=== PATIENT | male | born 1980 | race Caucasian/White ===

== ENCOUNTER → 2020-05-03 | Day surgery (SDC) | payer BC ==
[~2020-05-03] MED LIST: ETOMIDATE 2 MG/ML 10 ML INJ IV ONE; GLYCOPYRROLATE INJ 0.2 MG/ML VIAL ONE; HYOSCYAMINE 0.125 MG TAB ONE; LIDOCAINE HCL 2% LOCAL INJ 5 ML SDV VIAL INJ ONE; MONTELUKAST SOD10 MG PO; PROPOFOL IV EMULSION 10 MG/ML 20 ML VIAL ONE
[2020-05-03 14:43] VITALS: BP 139/96
--- NOTE | 2020-05-03 18:20 | Operative Report ---
DATE OF PROCEDURE: 05/03/2020 SURGEON: Eder Singh MD PROCEDURE: Colonoscopy with polypectomy. INDICATIONS FOR COLONOSCOPY: Rectal bleeding. MEDICATIONS: The patient was done under MAC, please see anesthesiologist's note. PROCEDURE IN DETAIL: With the patient in the left lateral decubitus position, a flexible fiberoptic Olympus colonoscope was inserted into the rectum with ease and advanced all the way to the cecum. The mucosa overlying the cecum appeared to be within normal limits. Approximately 1.8 sessile polypoid lesion was noted in the proximal ascending colon that was removed per piecemeal polypectomy and site hemoclipped x4. The rest of the ascending and transverse appeared to be within normal limits. Approximately 5 mm sessile polyp was removed per snare electrocautery from the descending colon. The sigmoid appeared to be within normal limits. Another approximately 5 mm sessile polyp was removed from the proximal rectum per hot snare polypectomy. The scope was then retroflexed into the distal rectum and small internal hemorrhoids were noted, none of which was actively bleeding. The scope was then straightened out, it was subsequently withdrawn, and the patient tolerated the procedure well. IMPRESSION: 1. Ascending colon polyp, approximately 1.8 cm in size, sessile, removed per piecemeal polypectomy, site hemoclipped x4. 2. Descending colon polyp, hot snared. 3. Rectal polyp, hot snared. 4. Internal hemorrhoids, none actively bleeding. PLAN: Follow up histology. The patient will need a followup colonoscopy in 4 to 6 months to re-evaluate polypectomy site, proximal ascending colon and remove any residual polypoid tissue. Eder Singh MD [facility] [place] /[id number] cc: Kirk Singh MD
== END | disposition home or self-care (01) ==
LOC: OR 09:11
PROVIDERS: ATTEND Internal Medicine Gastroenterology
DX: D12.7 Benign neoplasm of rectosigmoid junction (principal); D12.2 Benign neoplasm of ascending colon; Z88.2 Allergy status to sulfonamides; Z88.8 Allergy status to other drugs, medicaments and biological substances; K21.9 Gastro-esophageal reflux disease without esophagitis; K64.8 Other hemorrhoids; Z01.812 Encounter for preprocedural laboratory examination; Z11.59 Encounter for screening for other viral diseases
CPT/HCPCS: 45380; 45385; J2001; J2704; U0002; 45378

== ENCOUNTER → 2021-02-14 | Day surgery (SDC) | payer BC ==
[~2021-02-14] MED LIST changes: -ETOMIDATE 2 MG/ML 10 ML INJ IV ONE; +FENTANYL CITRATE/PF 100MCG/2 ML INJ ONE; +GLUCAGON FOR INJ 1 MG VIAL ONE; -GLYCOPYRROLATE INJ 0.2 MG/ML VIAL ONE; -HYOSCYAMINE 0.125 MG TAB ONE; +HYOSCYAMINE SULFATE 0.5 MG/ML INJ ONE; -LIDOCAINE HCL 2% LOCAL INJ 5 ML SDV VIAL INJ ONE; +MIDAZOLAM HCL 2 MG/2 ML VIAL ONE
[2021-02-14 09:40] VITALS: BP 137/84
== END | disposition home or self-care (01) ==
LOC: OR 05:39
PROVIDERS: ATTEND Internal Medicine Gastroenterology
DX: D12.2 Benign neoplasm of ascending colon (principal); K64.8 Other hemorrhoids; Z01.812 Encounter for preprocedural laboratory examination; Z20.822 Contact with and (suspected) exposure to COVID-19
CPT/HCPCS: 45380; 45381; J1610; J1980; J2250; J2704; J3010; U0002; 45378

== ENCOUNTER → 2021-11-07 | Outpatient (CLI) | payer BC ==
[~2021-11-07] MED LIST changes: -FENTANYL CITRATE/PF 100MCG/2 ML INJ ONE; -GLUCAGON FOR INJ 1 MG VIAL ONE; -HYOSCYAMINE SULFATE 0.5 MG/ML INJ ONE; -MIDAZOLAM HCL 2 MG/2 ML VIAL ONE; -PROPOFOL IV EMULSION 10 MG/ML 20 ML VIAL ONE
== END ==
LOC: US 07:00
PROVIDERS: ATTEND Internal Medicine Gastroenterology
DX: R19.5 Other fecal abnormalities (principal)
CPT/HCPCS: 76700